=== PATIENT | female | born 1975 ===

== ENCOUNTER 2024-08-31 04:36 | Day surgery (SDC) | payer BC, OTHER ==
[2024-08-29 12:12] VITALS: BMI 48.5
[2024-08-31 14:14] VITALS: TEMP 98.2
[2024-08-31 14:15] VITALS: RESP 14
[2024-08-31 14:17] VITALS: BP 110/66; PULSE 68
== END 2024-08-31 14:02 | disposition home or self-care (01) ==
LOC: JASU-ENDO 04:36
PROVIDERS: ATTEND Student in an Organized Health Care Education/Training Program
PROC: 0DBN8ZX Excision of Sigmoid Colon, Via Natural or Artificial Opening Endoscopic, Diagnostic (ICD-10-PCS; principal; 2024-08-31 11:30)
DX: Z12.11 Encounter for screening for malignant neoplasm of colon (principal); D12.5 Benign neoplasm of sigmoid colon
CPT/HCPCS: 81025; 88305-TC